=== PATIENT | female | born 1965 | race Caucasian/White ===

== ENCOUNTER 2017-09-11 19:50 | Emergency (ER) | payer BC, OTHER ==
[~2017-09-11] VITALS: Ht 172.7 cm; Wt 90.7 kg
[2017-09-11 19:52] VITALS: Ht 172.7 cm; Wt 90.7 kg
[2017-09-11 22:45] VITALS: BP 116/66
== END 2017-09-11 22:45 | disposition home or self-care (01) ==
LOC: ED 19:50
DX: H61.21 Impacted cerumen, right ear (principal); H81.11 Benign paroxysmal vertigo, right ear; Z88.2 Allergy status to sulfonamides
CPT/HCPCS: J0780; J2405; J7030; J8597